=== PATIENT | male | born 1965 | race Caucasian/White ===

== ENCOUNTER 2016-11-28 23:25 | Emergency (ER) | payer BC ==
[2016-11-28 23:25] VITALS: BMI 27.2
[2016-11-28 23:44] VITALS: RESP 20
--- NOTE | 2016-11-28 23:48 | ED PDOC ---
Arrival/HPI - General Chief Complaint: Palpitations Time Seen by Provider: 11/28/16 23:45 Historian: Patient - History of Present Illness Narrative History of Present Illness (Text): 11/28/16 23:47 Rusty Valdez is a 51 year old male, whose PMHx includes IDDM, CABG, SVT, and CVA, who presents to the Emergency department complaining of rapid heart rate. Patient states shortly after eating began experiencing rapid heart rate. Patient on arrival to Emergency department noted to be in SVT. Patient denies any fever, chills, chest pain, shortness of breath, nausea, vomiting, neck pain , headache, dizziness, or any other complaints. Patient was instructed by his spindle tester to increase his Metoprolol 1 month prior, but did not. PMD: Dr. Jeanmarie Mcdaniel Communication Analyst: Dr. Jama Time/Duration: Prior to Arrival Symptom Onset: Gradual Symptom Course: Unchanged Activities at Onset: Light Context: Home Past Medical History - Provider Review Nursing Documentation Reviewed: Yes - Infectious Disease Hx of Infectious Diseases: None - Tetanus Immunization Tetanus Immunization: Unknown - Cardiac Hx Cardiac Disorders: Yes - Pulmonary Hx Respiratory Disorders: No - Neurological HX Cerebrovascular Accident: Yes (RIGHT SIDED WEAKNESS) - Renal Hx Renal Disorder: No - Endocrine/Metabolic Hx Diabetes Mellitus Type 2: Yes (on insulin pump) - Hematological/Oncological Hx Blood Transfusions: No Hx Blood Transfusion Reaction: No - Musculoskeletal/Rheumatological Hx Musculoskeletal Disorders: No Hx Falls: No - Genitourinary/Gynecological Hx Genitourinary Disorders: No - Psychiatric Hx Emotional Abuse: No Hx Physical Abuse: No Hx Substance Use: No - Past Surgical History Past Surgical History: Unable to Obtain - Surgical History Hx Cardiac Catheterization: Yes Hx Open Heart Surgery: Yes - Anesthesia Hx Anesthesia: No Hx Anesthesia Reactions: No Hx Malignant Hyperthermia: No - Suicidal Assessment Feels Threatened In Home Enviroment: No Family/Social History - Physician Review Nursing Documentation Reviewed: Yes Family/Social History: Unknown Family HX Smoking Status: Former Smoker Hx Alcohol Use: Yes (occassional) Frequency of alcohol use: Socially Hx Substance Use: No Hx Substance Use Treatment: No Allergies/Home Meds Allergies/Adverse Reactions: Allergies Penicillins Allergy (Verified 11/28/16 23:40) RASH Home Medications: Home Meds Medication Instructions Recorded Confirmed Acetaminophen [Tylenol 80 mg Chew 650 mg PO PRN PRN 04/05/16 04/05/16 Tab] Aspirin [Ecotrin] 81 mg PO DAILY 04/05/16 04/05/16 Atorvastatin [Lipitor] 40 mg PO DAILY 04/05/16 04/05/16 Metoprolol Succinate [Toprol XL] 50 mg PO DAILY 04/05/16 04/05/16 Multivit-Minerals/FA/Lycopene [One 1 tab PO DAILY 04/05/16 04/05/16 Daily Men's Health Tablet] Ubidecarenone [Co Q10] 100 mg PO DAILY 04/05/16 04/05/16 Review of Systems - Physician Review All systems were reviewed & negative as marked: Yes - Review of Systems Constitutional: Normal. absent: Fevers Eyes: Normal ENT: Normal Respiratory: Normal. absent: SOB, Cough Cardiovascular: Palpitations Gastrointestinal: Normal. absent: Abdominal Pain, Nausea, Vomiting Genitourinary Male: Normal. absent: Dysuria, Frequency, Hematuria Musculoskeletal: Normal. absent: Back Pain, Neck Pain Skin: Normal. absent: Rash Neurological: Normal. absent: Headache, Dizziness Endocrine: Normal Hemo/Lymphatic: Normal Psychiatric: Normal Physical Exam Vital Signs Reviewed: Yes Vital Signs Pulse Resp BP Pulse Ox 11/29/16 03:41 82 20 110/68 98 11/28/16 23:43 149 H 20 136/78 97 Temperature: Afebrile Blood Pressure: Normal Pulse: Tachycardic Respiratory Rate: Normal Appearance: Positive for: Well-Appearing, Non-Toxic, Comfortable Pain Distress: None Mental Status: Positive for: Alert and Oriented X 3 - Systems Exam Head: Present: Atraumatic, Normocephalic Pupils: Present: PERRL Extroacular Muscles: Present: EOMI Conjunctiva: Present: Normal Mouth: Present: Moist Mucous Membranes Neck: Present: Normal Range of Motion Respiratory/Chest: Present: Clear to Auscultation, Good Air Exchange. No: Respiratory Distress, Accessory Muscle Use Cardiovascular: Present: Tachycardic. No: Murmurs Abdomen: Present: Normal Bowel Sounds. No: Tenderness, Distention, Peritoneal Signs Back: Present: Normal Inspection Upper Extremity: Present: Normal Inspection. No: Cyanosis, Edema Lower Extremity: Present: Normal Inspection. No: Edema Neurological: Present: GCS=15, CN II-XII Intact, Speech Normal Skin: Present: Warm, Dry, Normal Color. No: Rashes Psychiatric: Present: Alert, Oriented x 3, Normal Insight, Normal Concentration Medical Decision Making ED Course and Treatment: 11/28/16 23:47 Impression: 51 year old male complaining of rapid heart rate tonight. Plan: -- EKG -- Chest X-ray -- Labs, cardiac enzymes -- Reassess and disposition Prior Visits: Notes and results from previous visits were reviewed. Progress Notes: Reviewed EKG, SVT at [address] bpm[address] Non-specific ST/T wave changes. 11/29/16 00:17 Reviewed repeat EKG post Adenosine, NSR at [address]-segment elevations or depressions, no T-wave inversions, normal intervals. 11/29/16 03:21 On re-evaluation, pt was strongyl admission to the hospital for further monitorig and evalaute. Pt's informed potassium was low, and was supplemented in the Emergency room. Pt continues tow ant to leave and states he will follow- up with spindle tester tomorrow. The patient is choosing to leave against medical advice. I have personally explained to the patient that choosing to do so may result in permanent bodily harm or . I have discussed at great length that without further evaluation and monitoring there may be unforeseen circumstances and/or deterioration causing permanent bodily harm or as a result of their choice. The patient is alert, oriented, and shows the mental capacity to make clear decisions regarding the patients health care at this time. The patient continues to wish to leave against medical advice. In light of the patients decision to leave against medical advice, follow-up has been arranged and the patient is aware of the importance to following up as instructed. The patient has been advised that they should return to the emergency room immediately if they change their mind at any time, or if their condition begins to change or worsen in any way. - Lab Interpretations Lab Results: 11/29/16 00:00 11/29/16 01:10 Lab Results 11/29/16 01:10: Sodium 141, Potassium 2.9 L* D, Chloride 110 H, Carbon Dioxide 23, Anion Gap 11, BUN 10, Creatinine 0.6, Est GFR ( Amer) > 60, Est GFR ( Non-Af Amer) > 60, Random Glucose 84, Calcium 7.0 L, Total Bilirubin 0.4, AST 30 , ALT 25, Alkaline Phosphatase 76, Lactate Dehydrogenase 482, Total Creatine Kinase 59, Troponin I < 0.01, Total Protein 5.6 L, Albumin 2.9 L, Globulin 2.7, Albumin/Globulin Ratio 1.1 11/29/16 00:38: POC Glucose (mg/dL) 68 11/29/16 00:00: WBC 11.3 H, RBC 5.50, Hgb 14.8, Hct 41.9 L, MCV 76.2 L, MCH 26.9 , MCHC 35.3, RDW 13.3, Plt Count 285, MPV 12.3 H 11/29/16 00:00: PT 10.1, INR 0.94, APTT 30.7 - RAD Interpretation Radiology Orders: 11/28/16 23:47 CHEST PORTABLE [RAD] Stat - EKG Interpretation Interpreted by ED Physician: Yes Type: 12 lead EKG - Medication Orders Current Medication Orders: Discontinued Medications Adenosine (Adenosine 6 Mg/2 Ml Inj) Confirm Administered Dose 6 mg .ROUTE .STK- MED ONE Stop: 11/28/16 23:54 Last Admin: 11/29/16 04:25 Dose: Adenosine (Adenosine 6 Mg/2 Ml Inj) 6 mg IVP STAT STA Stop: 11/29/16 00:03 Last Admin: 11/29/16 00:02 Dose: 6 mg IVP Administration Document 11/29/16 00:02 SS (Rec: 11/29/16 04:24 SS [id number]) Charges for Administration # of IVP Administrations 1 Potassium Chloride (K-Dur 20 Meq Er Tab) 40 meq PO STAT STA Stop: 11/29/16 02:28 Last Admin: 11/29/16 02:39 Dose: 40 meq - Scribe Statement The provider has reviewed the documentation as recorded by the Dengibjohn Villagran All medical record entries made by the [place] were at my direction and personally dictated by me. I have reviewed the chart and agree that the record accurately reflects my personal performance of the history, physical exam, medical decision making, and the department course for this patient. I have also personally directed, reviewed, and agree with the discharge instructions and disposition. Disposition/Present on Arrival - Present on Arrival Any Indicators Present on Arrival: No History of DVT/PE: No History of Uncontrolled Diabetes: No Urinary Catheter: No History of Decub. Ulcer: No History Surgical Site Infection Following: None - Disposition Have Diagnosis and Disposition been Completed?: Yes Diagnosis: SVT (supraventricular tachycardia), Hypokalemia Disposition: AGAINST MEDICAL ADVICE Disposition Time: 03:19 Condition: STABLE Forms: [facility] (Djiboutian)
[2016-11-29 00:38] LABS: HEMATOCRIT 41.9 % (42.0-52.0); MEAN CELL VOLUME 76.2 fl (80.0-105.0); MEAN CORPUSCULAR HEMOGLOBIN 26.9 pg (25.0-35.0); MEAN CORPUSCULAR HGB CONC 35.3 g/dl (31.0-37.0); MEAN PLATELET VOLUME 12.3 fl (7.0-11.0); RED CELL DISTRIBUTION WIDTH 13.3 % (11.5-14.5); WHITE BLOOD COUNT 11.3 10^3/ul (4.5-11.0)
[2016-11-29 00:48] LABS: INR 0.94 (0.93-1.08); PARTIAL THROMBOPLASTIN TIME 30.7 Seconds (23.7-30.8)
[2016-11-29 01:34] LABS: ALB/GLOB RATIO 1.1 (1.1-1.8); ALKALINE PHOSPHATASE 76 U/L (38-126); ALT/SGPT 25 U/L (7-56); AST/SGOT 30 U/L (17-59); BILIRUBIN,TOTAL 0.4 mg/dL (0.2-1.3); BLOOD UREA NITROGEN 10 mg/dL (7-21); CARBON DIOXIDE 23 mmol/L (21-33); CHLORIDE 110 mmol/L (98-107); GFR AFRICAN-AMERICAN > 60; GLUCOSE,RANDOM 84 mg/dL (70-110); SODIUM 141 mmol/L (132-148); TOTAL PROTEIN 5.6 g/dL (5.8-8.3)
[2016-11-29 01:51] LABS: POTASSIUM 2.9 mmol/L (3.6-5.0)
[2016-11-29 01:54] LABS: TROPONIN I < 0.01 ng/mL
[2016-11-29] MEDS ORDERED: Potassium Chloride 20 mEq ER Tab PO STA (02:27)
[2016-11-29 03:41] VITALS: BP 110/68; PULSE 82; O2SAT 98
--- NOTE | 2016-11-29 13:18 | RAD ---
HISTORY: tachycardia COMPARISON: 04/05/2016 FINDINGS: LUNGS: Bibasilar, medially positioned linear opacities - increased in their conspicuity-linear discoid atelectasis and/or linear fibrotic scars are inferred. Summation of the bronchovascular markings -medial right lung base also likely No interval consolidated infiltrate suggested PLEURA: No significant pleural effusion identified, no pneumothorax apparent. CARDIOVASCULAR: Top-normal heart size. Sternotomy wires -appearance unchanged OSSEOUS STRUCTURES: Sternotomy. Inferior thoracic spondylosis VISUALIZED UPPER ABDOMEN: Normal. OTHER FINDINGS: None. IMPRESSION: No consolidative infiltrate suggested Minimal basilar, medially positioned linear discoid atelectasis and/or fibrosis. Summation of bronchovascular markings here also likely
--- NOTE | 2016-11-29 23:18 | CARD ---
APPROVED REPORT EKG Measurement Heart [id number] <Conclusion> Normal sinus rhythm Normal ECG
== END 2016-11-29 03:41 | disposition left against medical advice (07) ==
LOC: ED 23:25
DX: E87.6 Hypokalemia (principal); I47.1 Supraventricular tachycardia
CPT/HCPCS: 71010; 80053; 82550; 82948; 83615; 84484; 85027; 85610; 85730; 93005; 96374; 99284; J0153